=== PATIENT | female | born 1935 | race Caucasian/White ===

== ENCOUNTER → 2020-06-20 10:36 | Outpatient (REF) | payer MEDICARE, SELFPAY | LOC: ANHLAB 10:36 | PROVIDERS: PCP Internal Medicine; Visit Provider Nurse Practitioner | DX: C44.01 Basal cell carcinoma of skin of lip (principal) | CPT/HCPCS: 88305; 88331 ==

== ENCOUNTER 2020-09-03 23:19 | Emergency (ER) | payer MEDICARE, SELFPAY ==
--- NOTE | ~2020-09-03 | XR_ITS ---
EXAMINATION: XR abdomen/kub 1V INDICATION: Constipation TECHNIQUE: Supine views of the abdomen were obtained on 2 radiographs. COMPARISON: None FINDINGS: There is a moderate volume of colonic stool. No dilated loops of bowel are evident. Surgica l clips in the right upper quadrant are likely from prior cholecystectomy. 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 IMPRESSION: 1. Constipation. Reviewed, dictated and finalized at location A. IMPRESSION: 1. Constipation.
--- NOTE | ~2020-09-03 | XR_ITS ---
EXAMINATION: XR chest 2V DATE: 09/04/2020 00:15 INDICATION: Near syncope TECHNIQUE: PA and lateral views of the chest are obtained. COMPARISON: None available FINDINGS: The lungs are free of acute opacities. There is no pleural effusion or pneumothorax. The he art size is normal. 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 There is mild thoracic spondylosis. Calcified atherosclerosis is noted. IMPRESSION: 1. No acute cardiopulmonary abnormality. Reviewed, dictated and finalized at location A.
[2020-09-03 23:26] VITALS: BP 138/76; PULSE 88; RESP 18; TEMP 36.8; O2SAT 97
[2020-09-03] MEDS: SODIUM CHLORIDE 0.9% IV 1,000 ML 999 ML IV CONT (23:59)
[2020-09-04 00:05] LABS: Basophils Absolute Auto 0.1 K/mm3 (0.0-0.1); Basophils Percent Auto 0.6 % (0.2-1.2); Eosinophils Absolute Auto 0.1 K/mm3 (0-0.3); Eosinophils Percent Auto 1.1 % (0-4.4); Hematocrit 43.2 % (37.0-47.0); Hemoglobin 13.8 g/dL (12.0-15.0); Immature Granulocyte Absolute 0.04 K/mm3 (0.00-0.031); Immature Granulocyte Percent A 0.4 % (0-0.5); Lymphocytes Absolute Auto 1.76 K/mm3 (0.9-3.2); Lymphocytes Percent Auto 17.2 % (18.3-44.2); Mean Corpuscular HGB Conc 31.9 g/dl (32-36); Mean Corpuscular Hemoglobin 29.7 pg (26-34); Mean Corpuscular Volume 92.9 fl (80-100); Monocytes Absolute Auto 0.5 K/mm3 (0.1-0.6); Monocytes Percent Auto 5.1 % (2.6-8.5); Neutrophils Absolute Auto 7.7 K/mm3 (1.3-6.7); Neutrophils Percent Auto 75.6 % (45.5-73.1); Platelet Count Result 226 k/mm3 (150-375); Red Blood Count 4.65 M/mm3 (4.2-5.4); Red Cell Distribution Width 13.2 % (11.5-14.5); White Blood Count 10.2 K/mm3 (4.5-10.0)
[2020-09-04 00:09] LABS: Anion Gap 8 mmol/L (8-16); Blood Urea Nitrogen 19 mg/dL (7-17); Calcium 9.1 mg/dL (8.4-10.2); Carbon Dioxide 27 mmol/L (22-30); Chloride 101 mmol/L (98-107); Estimated CRCL calculation 32 ml/min; Estimated Glomerular Filt Rate 47; Glucose 173 mg/dL (65-105); Sodium 136 mmol/L (137-145)
[2020-09-04 00:18] LABS: Potassium 3.6 mmol/L (3.4-5.0)
[2020-09-04 00:52] VITALS: BP 150/75; PULSE 80
[2020-09-04 00:54] VITALS: BP 154/83; PULSE 85
[2020-09-04 00:55] VITALS: BP 155/74; PULSE 85
--- NOTE | 2020-09-04 01:02 | ED.GENADULT ---
HPI - General Adult General Chief complaint: Syncope Stated complaint: not feeling well Time Seen by Provider: 09/03/20 23:25 History of Present Illness HPI narrative: Patient is an 84-year-old female who presents ER with complaints of constipation and weakness. [place] been eating hamburgers and feeling quite full. She then felt weak and had to sit herself down. She had no loss of consciousness. No chest pain or shortness of breath or nausea or vomiting. She reports she has been trying enemas at home without relief. No history of bowel obstruction. She does feel slightly bloated. Related Data Home Medications Medication Instructions Recorded Confirmed amlodipine 5 mg tablet 5 mg PO DAILY tablet 06/20/20 citalopram 20 mg tablet 20 mg PO DAILY tablet 06/20/20 omeprazole 20 mg capsule,delayed 20 mg PO DAILY cap 06/20/20 release Allergies Allergy/AdvReac Type Severity Reaction Status Date / Time Sulfa (Sulfonamide Allergy Other Verified 06/27/20 14:31 Antibiotics) Review of Systems Review of Systems: All systems reviewed & are unremarkable except as noted in HPI and below Constitutional: Constitutional: Denies chills, Denies fever(s) and Denies weakness ENT: Denies nasal congestion and Denies sore throat Cardiovascular: Cardiovascular: Denies chest pain, Denies rapid heart rate and Denies radiating jaw, neck or arm pain Gastrointestinal: Gastrointestinal: Denies abdominal pain, Reports constipation, Reports nausea and Denies vomiting Neurologic: Denies syncope PMFSH Past Medical History Medical History Pancreatitis x2 - 1994 Surgical History Surgical History History of appendectomy 1969 History of hysterectomy 1982 History of knee surgery 1997 History of tonsillectomy 1944 Social History Social History Smoking status: Never smoker Alcohol intake: never Substance use: never Substance use type: does not use Exam Narrative: Exam Narrative: GENERAL: Well-appearing, well-nourished, and in no acute distress. HEAD: Normocephalic, atraumatic. CHEST: Clear to auscultation. No respiratory distress. HEART: Regular rate and rhythm. Normal peripheral pulses. ABDOMEN: Soft, nontender, nondistended. EXTREMITIES: Normal range of motion. No edema. SKIN: Warm, dry, no rash. NEURO: Alert and oriented x3. PSYCH: Normal mood and affect. Course Course Emergency Course: Unremarkable evaluation with exception of constipation. Will give magnesium citrate and MiraLAX for home. Follow-up with PCP. Normal orthostatics. Discharge home. Vital Signs Vital signs: Vital Signs Temperature 98.2 F 09/03/20 23:26 Pulse Rate 88 09/03/20 23:26 Respiratory Rate 18 09/03/20 23:26 Blood Pressure 138/76 09/03/20 23:26 Pulse Oximetry 97 09/03/20 23:26 Temperature 98.2 F 09/03/20 23:26 Pulse Rate 85 09/04/20 00:55 Respiratory Rate 18 09/03/20 23:26 Blood Pressure 155/74 H 09/04/20 00:55 Pulse Oximetry 97 09/03/20 23:26 Medical Decision Making Vital Signs Vital Signs: Vital Signs Temperature 98.2 F 09/03/20 23:26 Pulse Rate 88 09/03/20 23:26 Respiratory Rate 18 09/03/20 23:26 Blood Pressure 138/76 09/03/20 23:26 Pulse Oximetry 97 09/03/20 23:26 Temperature 98.2 F 09/03/20 23:26 Pulse Rate 85 09/04/20 00:55 Respiratory Rate 18 09/03/20 23:26 Blood Pressure 155/74 H 09/04/20 00:55 Pulse Oximetry 97 09/03/20 23:26 Lab Data Result diagrams: 09/03/20 23:53 09/03/20 23:53 Labs: Lab Results 09/03/20 09/03/20 Range/Units 23:53 23:53 WBC 10.2 H (4.5-10.0) K/mm3 RBC 4.65 (4.2-5.4) M/mm3 Hgb 13.8 (12.0-15.0) g/dL Hct 43.2 (37.0-47.0) % MCV 92.9 (80-100) fl
[2020-09-04 01:31] LABS: Add Urine Microscopic? YES; Appearance Urine Clear (Clear); Bacteria Urine Trace /hpf; Bilirubin Urine Negative (Negative); Blood Urine Negative (Negative); Color Urine Yellow (Yellow); Glucose Urine UA Negative (Negative); Ketones Urine Negative (Negative); Leukocyte Esterase Ur Trace LEU/UL (Negative); Mucus Urine Rare /lpf; Nitrate Urine Positive (Negative); Protein Urine Negative (Negative); RBC Urine 0-2 /hpf (0-2); Specific Grav Ur 1.006 (1.001-1.035); Squamous Epithelial Cell Urine Rare /hpf (Few); Urobilinogen Urine Negative mg/dL (<2.0); WBC Urine 16-20 /hpf
[2020-09-04 02:14] VITALS: BP 132/72; PULSE 77; RESP 18; O2SAT 98
--- NOTE | 2020-09-07 03:47 | PC.NURSE ---
LATE ENTRY This note is being entered to document information to the patient's record. The following information was omitted on [], by [iv of roxanne porter @ [id number]].
== END 2020-09-04 02:18 | disposition home or self-care (01) ==
PROVIDERS: Emergency Provider Emergency Medicine; PCP Internal Medicine
DX: K59.00 Constipation, unspecified (principal); R53.1 Weakness
CPT/HCPCS: 36415; 71046; 74018; 80048; 81001; 85025; 87077; 87086; 87088; 87186; 96360; 99284; J7030

== ENCOUNTER 2023-04-19 09:42 | Outpatient (CLI) | payer MEDICARE, SELFPAY ==
--- NOTE | ~2023-04-19 | US_ITS ---
Limited Abdominal Sonogram: Real-time sonographic imaging of the right upper quadrant was performed. Clinical History: Abnormal CT scan Findings: The liver appears normal with no evidence of mass lesion or bile duct dilatation. Main por mary ellen vein demonstrates normal direction of flow. The gallbladder is absent, compatible prior cholecyst ectomy. The common bile duct measures 4 mm. The visualized pancreas, aorta, and IVC are unremarkable . Right kidney measures 8.6 cm in length, without hydronephrosis. Impression: Status post cholecystectomy, otherwise unremarkable exam. Reviewed, dictated and finalized at location M. ING MACHINE OPERATOR Impression: Status post cholecystectomy, otherwise unremarkable exam.
== END 2023-04-19 09:43 | disposition home or self-care (01) ==
PROVIDERS: PCP Family Medicine; Visit Provider Internal Medicine Gastroenterology
DX: K83.8 Other specified diseases of biliary tract (principal)
CPT/HCPCS: 76705